=== PATIENT | male | born 1965 | race Caucasian/White ===

== ENCOUNTER 2021-12-06 13:40 | Emergency (ER) | payer MEDICAID ==
[2021-12-06 14:03] VITALS: BP 152/109; PULSE 92
== END 2021-12-06 14:45 | disposition home or self-care (01) ==
LOC: CC.ED 13:40
DX: F32.A Depression, unspecified (principal); F41.9 Anxiety disorder, unspecified
CPT/HCPCS: 99284

== ENCOUNTER 2022-03-28 08:15 | Emergency (ER) | payer MEDICAID ==
[2022-03-28 08:34] VITALS: BP 150/98; PULSE 83
[2022-03-28] MEDS: Aspirin 81 MG Tab.Chew PO ONE (08:45)
[2022-03-28] MEDS: Ondansetron 4 MG/2 ML SDV IVPUSH STA (08:45)
[2022-03-28] MEDS: Morphine 2 MG/ML SYRINGE IVPUSH ONE (08:45)
== END 2022-03-28 09:37 | disposition home or self-care (01) ==
LOC: CC.ED 08:15
DX: R07.81 Pleurodynia (principal); J06.9 Acute upper respiratory infection, unspecified; Z79.899 Other long term (current) drug therapy; Z20.822 Contact with and (suspected) exposure to COVID-19
CPT/HCPCS: 36415; 71045; 80053; 84484; 85025; 85379; 86140; 93005; 96374; 96375; 99284; 99285-25; A9270-GY; J2270; J2405; U0002

== ENCOUNTER 2022-12-05 11:32 | Emergency (ER) | payer MEDICAID ==
[2022-12-05 11:45] VITALS: BP 147/68; PULSE 81
[2022-12-05] MEDS ORDERED: Ketorolac 30 MG/ML SDV IVPUSH ONE (12:11)
== END 2022-12-05 12:33 | disposition home or self-care (01) ==
LOC: CC.ED 11:32
DX: S43.401A Unspecified sprain of right shoulder joint, initial encounter (principal); Z79.82 Long term (current) use of aspirin; Z79.01 Long term (current) use of anticoagulants; Z79.899 Other long term (current) drug therapy; Z72.0 Tobacco use; X50.9XXA Other and unspecified overexertion or strenuous movements or postures, initial encounter; Y99.0 Civilian activity done for income or pay
CPT/HCPCS: 73030-RT; 96374; 99283; 99283-25; J1885

== ENCOUNTER 2024-10-01 08:30 | Emergency (ER) | payer MEDICAID ==
[2024-10-01 08:47] LABS: BASOPHILS ABSOLUTE AUTO 0.01 10^3/uL (0.00-0.50); BASOPHILS PERCENT AUTO 0.1 % (0-1); EOSINOPHILS PERCENT AUTO 1.1 % (0-6); HEMATOCRIT 46.7 % (42.0-52.0); HEMOGLOBIN 15.2 g/dL (14.0-18.0); IMMATURE GRAN ABSOLUTE AUTO 0.02 10^3/uL (0.00-0.49); IMMATURE GRAN PERCENT AUTO 0.2 % (0.0-4.9); LYMPHOCYTES ABSOLUTE AUTO 1.28 10^3/uL (0.60-5.00); LYMPHOCYTES PERCENT AUTO 14.5 % (24-44); MEAN CORPUSCULAR HEMOGLOBIN 31.1 pg (27.0-32.0); MEAN CORPUSCULAR HGB CONC 32.5 g/dL (32.0-36.0); MEAN CORPUSCULAR VOLUME 95.7 fL (83.0-97.0); MONOCYTES ABSOLUTE AUTO 0.61 10^3/uL (0.00-1.50); MONOCYTES PERCENT AUTO 6.9 % (0-10); NEUTROPHILS ABSOLUTE AUTO 6.83 x10^3/uL (1.80-8.00); NEUTROPHILS PERCENT AUTO 77.2 % (41-71); PLATELET COUNT,PLT 179 10^3/uL (150-400); RED BLOOD CELL COUNT 4.88 x10^6/uL (4.50-6.00); WHITE BLOOD CELL COUNT,WBC 8.9 10^3/uL (4.0-11.0)
[2024-10-01 08:49] VITALS: PULSE 70
[2024-10-01] MEDS: Aspirin 81 MG Tab.Chew PO ONE (08:55)
[2024-10-01 08:58] LABS: INR 1.25 (0.92-1.18)
[2024-10-01 09:00] LABS: BILIRUBIN TOTAL 0.4 mg/dL (0.0-1.0); CALCIUM 8.9 mg/dL (8.4-10.1); CREATININE 1.1 mg/dL (0.7-1.3); EST CRCL DRUG DOSING (CG) 71.68 mL/min; POTASSIUM,K 4.5 mEq/L (3.5-5.0); PROTEIN TOTAL,TP 7.6 g/dL (6.4-8.2)
[2024-10-01 09:12] VITALS: BP 125/80
== END 2024-10-01 10:10 | disposition home or self-care (01) ==
LOC: CC.ED 08:30
DX: J40 Bronchitis, not specified as acute or chronic (principal); F17.210 Nicotine dependence, cigarettes, uncomplicated; Z79.82 Long term (current) use of aspirin; Z79.899 Other long term (current) drug therapy
CPT/HCPCS: 36415; 71046; 80053; 82550; 83615; 83690; 84484; 85025; 85610; 85730; 93005; 99285; A9270-GY

== ENCOUNTER 2025-02-15 09:45 | Emergency (ER) | payer MEDICAID ==
[2025-02-15] MEDS ORDERED: Sodium Chloride 0.9% 10 ML Syringe FLUSH PRN (09:51)
[2025-02-15] MEDS: Aspirin 81 MG Tab.Chew PO ONE (09:55)
[2025-02-15 09:57] LABS: BASOPHILS ABSOLUTE AUTO 0.03 10^3/uL (0.00-0.50); BASOPHILS PERCENT AUTO 0.4 % (0-1); EOSINOPHILS ABSOLUTE AUTO 0.13 10^3/uL (0.00-1.50); EOSINOPHILS PERCENT AUTO 1.8 % (0-6); HEMATOCRIT 44.3 % (42.0-52.0); HEMOGLOBIN 14.6 g/dL (14.0-18.0); IMMATURE GRAN ABSOLUTE AUTO 0.01 10^3/uL (0.00-0.49); IMMATURE GRAN PERCENT AUTO 0.1 % (0.0-4.9); LYMPHOCYTES ABSOLUTE AUTO 1.77 10^3/uL (0.60-5.00); LYMPHOCYTES PERCENT AUTO 25.1 % (24-44); MEAN CORPUSCULAR HEMOGLOBIN 31.7 pg (27.0-32.0); MEAN CORPUSCULAR VOLUME 96.1 fL (83.0-97.0); MONOCYTES ABSOLUTE AUTO 0.61 10^3/uL (0.00-1.50); MONOCYTES PERCENT AUTO 8.6 % (0-10); NEUTROPHILS ABSOLUTE AUTO 4.51 x10^3/uL (1.80-8.00); PLATELET COUNT,PLT 179 10^3/uL (150-400); RED BLOOD CELL COUNT 4.61 x10^6/uL (4.50-6.00); WHITE BLOOD CELL COUNT,WBC 7.1 10^3/uL (4.0-11.0)
[2025-02-15 10:09] LABS: ALANINE AMINOTRANSFERASE,ALT 23 U/L (12-78); ALKALINE PHOSPHATASE 125 U/L (46-116); ASPARTATE AMNIOTRANSFERASE,AST 18 U/L (15-37); BILIRUBIN TOTAL 0.3 mg/dL (0.0-1.0); BLOOD UREA NITROGEN,BUN 16 mg/dL (7-18); C-REACTIVE PROTEIN 1.48 mg/dL (<=0.50); CALCIUM 9.2 mg/dL (8.4-10.1); CARBON DIOXIDE,CO2 28 mmol/L (21-32); CHLORIDE,CL 103 mEq/L (98-106); GLUCOSE RANDOM 109 mg/dL (75-99); LIPASE 35 U/L (16-77); POTASSIUM,K 4.2 mEq/L (3.5-5.0); PROTEIN TOTAL,TP 7.3 g/dL (6.4-8.2); SODIUM,NA 138 mEq/L (136-145)
[2025-02-15 10:14] LABS: ESTIMATED GFR 87 mL/min (>=60)
[2025-02-15 10:22] LABS: INR 1.37 (0.92-1.18); PROTHROMBIN TIME 13.9 SEC (9.3-11.3)
[2025-02-15 10:27] VITALS: BP 128/77; PULSE 77
[2025-02-15 10:31] LABS: D-DIMER QUANTITATIVE 0.4 (0.00-0.50); PTT,PARTIAL THROMBOPLSTIN TIME 32.1 SEC (20.0-30.0)
[2025-02-15] MEDS: Aluminum Hydroxide/Magnesium Hydroxide/Simethicone Susp 30 ML Cup PO ONE (10:36)
[2025-02-15] MEDS: Morphine 2 MG/ML SYRINGE IVPUSH ONE (11:09)
[2025-02-15] MEDS: methylPREDNISolone Sodium Succinate 40 MG/1 ML SDV IVPUSH ONE (11:12)
[2025-02-15] MEDS: Azithromycin 250 MG Tab PO ONE (11:14)
[2025-02-15] MEDS: Take Home: traMADol 50 MG, 4 Tab Pack PO ONE (11:23)
== END 2025-02-15 11:45 | disposition home or self-care (01) ==
LOC: CC.ED 09:45
DX: R07.2 Precordial pain (principal); J20.9 Acute bronchitis, unspecified; Z79.2 Long term (current) use of antibiotics; Z79.01 Long term (current) use of anticoagulants; Z79.82 Long term (current) use of aspirin; Z79.899 Other long term (current) drug therapy
CPT/HCPCS: 36415; 71045; 80053; 83690; 83735; 84484; 85025; 85379; 85610; 85730; 86140; 93005; 93010; 96374; 96375; 99284; 99285-25; A9270-GY; J2270; J2919

== ENCOUNTER 2025-02-26 08:09 | Emergency (ER) | payer MEDICAID ==
[2025-02-26] MEDS: methylPREDNISolone Sodium Succinate 125 MG/2 ML SDV IVPUSH STA (08:32)
[2025-02-26 08:43] LABS: BASOPHILS ABSOLUTE AUTO 0.04 10^3/uL (0.00-0.50); BASOPHILS PERCENT AUTO 0.5 % (0-1); EOSINOPHILS ABSOLUTE AUTO 0.10 10^3/uL (0.00-1.50); EOSINOPHILS PERCENT AUTO 1.3 % (0-6); IMMATURE GRAN ABSOLUTE AUTO 0.03 10^3/uL (0.00-0.49); IMMATURE GRAN PERCENT AUTO 0.4 % (0.0-4.9); LYMPHOCYTES ABSOLUTE AUTO 1.82 10^3/uL (0.60-5.00); LYMPHOCYTES PERCENT AUTO 22.8 % (24-44); MONOCYTES ABSOLUTE AUTO 0.54 10^3/uL (0.00-1.50); MONOCYTES PERCENT AUTO 6.8 % (0-10); NEUTROPHILS ABSOLUTE AUTO 5.47 x10^3/uL (1.80-8.00); NEUTROPHILS PERCENT AUTO 68.2 % (41-71); PLATELET COUNT,PLT 201 10^3/uL (150-400); RED BLOOD CELL COUNT 5.15 x10^6/uL (4.50-6.00); WHITE BLOOD CELL COUNT,WBC 8.0 10^3/uL (4.0-11.0)
[2025-02-26 08:55] LABS: INR 2.0 (0.92-1.18); PTT,PARTIAL THROMBOPLSTIN TIME 37.7 SEC (20.0-30.0)
[2025-02-26 09:02] LABS: ALANINE AMINOTRANSFERASE,ALT 26.0 U/L (12-78); ASPARTATE AMNIOTRANSFERASE,AST 19.0 U/L (15-37); BILIRUBIN TOTAL 0.6 mg/dL (0.0-1.0); BLOOD UREA NITROGEN,BUN 14.0 mg/dL (7-18); CARBON DIOXIDE,CO2 26.0 mmol/L (21-32); CHLORIDE,CL 102.0 mEq/L (98-106); CREATININE 1.1 mg/dL (0.7-1.3); EST CRCL DRUG DOSING (CG) 70.82 mL/min; GLUCOSE RANDOM 116.0 mg/dL (75-99); POTASSIUM,K 4.4 mEq/L (3.5-5.0); PROTEIN TOTAL,TP 7.7 g/dL (6.4-8.2); SODIUM,NA 136.0 mEq/L (136-145)
[2025-02-26 09:11] LABS: ESTIMATED GFR 78.0 mL/min (>=60)
[2025-02-26 11:15] VITALS: BP 116/71; PULSE 68
== END 2025-02-26 10:20 | disposition home or self-care (01) ==
LOC: CC.ED 08:09
DX: R07.89 Other chest pain (principal); F17.200 Nicotine dependence, unspecified, uncomplicated; Z79.82 Long term (current) use of aspirin; Z79.899 Other long term (current) drug therapy; Z79.51 Long term (current) use of inhaled steroids
CPT/HCPCS: 36415; 71046; 80053; 84484; 85025; 85610; 85730; 86140; 93005; 96374; 99285-25; J2919

== ENCOUNTER 2025-03-19 14:18 | Emergency (ER) | payer MEDICAID ==
[2025-03-19 14:40] VITALS: PULSE 83
[2025-03-19 14:51] LABS: BASOPHILS ABSOLUTE AUTO 0.05 10^3/uL (0.00-0.50); BASOPHILS PERCENT AUTO 0.6 % (0-1); EOSINOPHILS ABSOLUTE AUTO 0.11 10^3/uL (0.00-1.50); EOSINOPHILS PERCENT AUTO 1.2 % (0-6); IMMATURE GRAN ABSOLUTE AUTO 0.01 10^3/uL (0.00-0.49); IMMATURE GRAN PERCENT AUTO 0.1 % (0.0-4.9); LYMPHOCYTES ABSOLUTE AUTO 1.46 10^3/uL (0.60-5.00); LYMPHOCYTES PERCENT AUTO 16.5 % (24-44); MONOCYTES ABSOLUTE AUTO 0.62 10^3/uL (0.00-1.50); MONOCYTES PERCENT AUTO 7.0 % (0-10); NEUTROPHILS ABSOLUTE AUTO 6.61 x10^3/uL (1.80-8.00); NEUTROPHILS PERCENT AUTO 74.6 % (41-71); PLATELET COUNT,PLT 188 10^3/uL (150-400); RED BLOOD CELL COUNT 4.79 x10^6/uL (4.50-6.00); WHITE BLOOD CELL COUNT,WBC 8.9 10^3/uL (4.0-11.0)
[2025-03-19 15:03] LABS: ALANINE AMINOTRANSFERASE,ALT 27.0 U/L (12-78); ASPARTATE AMNIOTRANSFERASE,AST 18.0 U/L (15-37); BILIRUBIN TOTAL 0.4 mg/dL (0.0-1.0); BLOOD UREA NITROGEN,BUN 18.0 mg/dL (7-18); CARBON DIOXIDE,CO2 29.0 mmol/L (21-32); CHLORIDE,CL 103.0 mEq/L (98-106); CREATININE 1.4 mg/dL (0.7-1.3); EST CRCL DRUG DOSING (CG) 55.64 mL/min; GLUCOSE RANDOM 101.0 mg/dL (75-99); POTASSIUM,K 4.5 mEq/L (3.5-5.0); PROTEIN TOTAL,TP 7.3 g/dL (6.4-8.2); SODIUM,NA 141.0 mEq/L (136-145)
[2025-03-19 15:12] LABS: ESTIMATED GFR 58.0 mL/min (>=60)
[2025-03-19 15:48] VITALS: BP 117/70
== END 2025-03-19 15:47 | disposition home or self-care (01) ==
LOC: CC.ED 14:18
DX: R07.89 Other chest pain (principal); F17.210 Nicotine dependence, cigarettes, uncomplicated; Z79.82 Long term (current) use of aspirin; Z79.899 Other long term (current) drug therapy; Z79.51 Long term (current) use of inhaled steroids
CPT/HCPCS: 36415; 71046; 80053; 84484; 85025; 86140; 99285

== ENCOUNTER 2025-05-13 09:41 | Emergency (ER) | payer MEDICAID ==
[2025-05-13 09:59] LABS: BASOPHILS ABSOLUTE AUTO 0.03 10^3/uL (0.00-0.50); BASOPHILS PERCENT AUTO 0.4 % (0-1); EOSINOPHILS ABSOLUTE AUTO 0.07 10^3/uL (0.00-1.50); EOSINOPHILS PERCENT AUTO 0.8 % (0-6); IMMATURE GRAN ABSOLUTE AUTO 0.03 10^3/uL (0.00-0.49); IMMATURE GRAN PERCENT AUTO 0.4 % (0.0-4.9); LYMPHOCYTES ABSOLUTE AUTO 1.01 10^3/uL (0.60-5.00); LYMPHOCYTES PERCENT AUTO 12.2 % (24-44); MONOCYTES ABSOLUTE AUTO 0.39 10^3/uL (0.00-1.50); MONOCYTES PERCENT AUTO 4.7 % (0-10); NEUTROPHILS ABSOLUTE AUTO 6.72 x10^3/uL (1.80-8.00); NEUTROPHILS PERCENT AUTO 81.5 % (41-71); PLATELET COUNT,PLT 197 10^3/uL (150-400); RED BLOOD CELL COUNT 5.00 x10^6/uL (4.50-6.00); WHITE BLOOD CELL COUNT,WBC 8.3 10^3/uL (4.0-11.0)
[2025-05-13 10:16] LABS: ALANINE AMINOTRANSFERASE,ALT 24 U/L (12-78); ASPARTATE AMNIOTRANSFERASE,AST 19 U/L (15-37); BILIRUBIN TOTAL 0.7 mg/dL (0.0-1.0); BLOOD UREA NITROGEN,BUN 10 mg/dL (7-18); CARBON DIOXIDE,CO2 28 mmol/L (21-32); CHLORIDE,CL 102 mEq/L (98-106); CREATININE 1.2 mg/dL (0.7-1.3); GLUCOSE RANDOM 114 mg/dL (75-99); POTASSIUM,K 4.3 mEq/L (3.5-5.0); PROTEIN TOTAL,TP 7.6 g/dL (6.4-8.2); SODIUM,NA 139 mEq/L (136-145)
[2025-05-13 10:18] LABS: ESTIMATED GFR 70 mL/min (>=60)
[2025-05-13 11:07] VITALS: BP 113/74; PULSE 82
== END 2025-05-13 10:59 | disposition home or self-care (01) ==
LOC: CC.ED 09:41
DX: J40 Bronchitis, not specified as acute or chronic (principal); F17.210 Nicotine dependence, cigarettes, uncomplicated; Z79.82 Long term (current) use of aspirin; Z79.899 Other long term (current) drug therapy; Z79.01 Long term (current) use of anticoagulants
CPT/HCPCS: 36415; 71046; 80053; 84484; 85025; 86140; 93005; 93010; 99284; 99285